=== PATIENT | male | born 1990 | race African-American/Black ===

== ENCOUNTER 2016-09-18 17:58 | Emergency (ER) | payer OTHER ==
[~2016-09-18] VITALS: Ht 167.6 cm; Wt 81.6 kg
[~2016-09-18 17:58] MED LIST: AFRIN30 ML NAS; ALBUTEROL0.09 MG/A1 INH; CLARITIN10 M1 PO; MEDROL DOSEPAK1 PAC PO; MEDROL4 M2 PO; MOTRIN800 MG PO; MULTIVITAMIN1 TAB PO; NASONEX17 GM NASB; PREDNISONE20 M1 PO; PROVENTIL HFA6.7 GM INH; REGLAN10 MG PO; ROBITUSSIN W/CO10 ML PO; TESSALON PERLE100 M1 PO; TESSALON PERLE100 MG PO; TRAMADOL50 MG PO; VENTOLIN HFA18 GM INH; ZOFRAN ODT4 M1 PO; ZOFRAN ODT4 MG PO; ZOFRAN4 M1 SL
[2016-09-18 18:26] LABS: ABSOLUTE BASOPHIL COUNT 0 /CUMM (0.0-0.2); ABSOLUTE EOSINOPHIL COUNT 0.3 /CUMM (0.0-0.7); ABSOLUTE GRANULOCYTE CT 10.4 /CUMM (1.4-6.5); ABSOLUTE LYMPH COUNT 2.4 /CUMM (1.2-3.4); ABSOLUTE MONOCYTE COUNT 0.8 /CUMM (0.10-0.60); BASOPHIL % 0 % (0.0-2.0); EOSINOPHIL % 1.9 % (0-5); HEMATOCRIT 43.4 % (42-52); MEAN CORPUSCULAR HGB 28.8 PG (27.0-31.0); MEAN CORPUSCULAR HGB CONC 33.3 G/DL (33.0-37.0); MEAN CORPUSCULAR VOLUME 86.5 FL (80.0-94.0); MEAN PLATELET VOLUME 7.6 FL (7.4-10.4); PLATELET COUNT 261 /CUMM (130-400); RBC DISTRIBUTION WIDTH 12.8 % (11.5-14.5); RED BLOOD CELL CT 5.02 /CUMM (4.70-6.10); WHITE BLOOD CELL COUNT 13.8 /CUMM (4.8-10.8)
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
[2016-09-18] MEDS ORDERED: ZOFRAN ODT4 M1 SL (20:45)
[2016-09-18] MEDS ORDERED: TESSALON PERLE100 M1 PO (20:45)
[2016-09-18] MEDS ORDERED: NASONEX17 GM NASB (20:45)
[2016-09-18 20:55] VITALS: BP 132/76
== END 2016-09-18 21:14 ==
LOC: ERH 17:58
PROVIDERS: Emergency Medicine
DX: J02.9 Acute pharyngitis, unspecified (principal); B34.9 Viral infection, unspecified
CPT/HCPCS: 87804; 87804-59

== ENCOUNTER 2016-09-30 12:32 | Emergency (ER) | payer OTHER ==
[~2016-09-30] VITALS: Ht 167.6 cm; Wt 83.5 kg
[~2016-09-30 12:32] MED LIST changes: +ZOFRAN ODT4 M1 SL
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
[2016-09-30 13:36] LABS: ABSOLUTE BASOPHIL COUNT 0 /CUMM (0.0-0.2); ABSOLUTE EOSINOPHIL COUNT 0.5 /CUMM (0.0-0.7); ABSOLUTE GRANULOCYTE CT 5.7 /CUMM (1.4-6.5); ABSOLUTE MONOCYTE COUNT 0.7 /CUMM (0.10-0.60); BASOPHIL % 0.2 % (0.0-2.0); EOSINOPHIL % 5.8 % (0-5); GRANULOCYTE % 72.7 % (42.2-75.2); HEMATOCRIT 43.3 % (42-52); MEAN CORPUSCULAR HGB 28.6 PG (27.0-31.0); MEAN CORPUSCULAR HGB CONC 33.1 G/DL (33.0-37.0); MEAN CORPUSCULAR VOLUME 86.4 FL (80.0-94.0); MEAN PLATELET VOLUME 7.6 FL (7.4-10.4); PLATELET COUNT 270 /CUMM (130-400); RBC DISTRIBUTION WIDTH 12.5 % (11.5-14.5); RED BLOOD CELL CT 5.01 /CUMM (4.70-6.10); WHITE BLOOD CELL COUNT 7.8 /CUMM (4.8-10.8)
[2016-09-30 14:04] VITALS: BP 116/58
--- NOTE | 2016-09-30 14:26 | RADIOLOGY REPORT ---
EXAMINATION: XR CHEST CLINICAL INFORMATION: Cough shortness of breath and fever COMPARISON: Chest x-ray from 07/30/2007 TECHNIQUE: Frontal and lateral views of the chest FINDINGS: Heart size is normal. Pulmonary vascularity is normal. There are mildly increased interstitial and peribronchial markings which may be related to bronchitis. There is a small focus of opacity in the left midlung zone and a linear area of atelectasis in the right middle lobe. No dense consolidation is identified. There is no pleural effusion or pneumothorax. There is underpenetration of the thoracic spine in the lateral projection but there is a suggestion of a mild compression deformity in the midthoracic spine at the T8 level. This is not optimally visualized on the views provided. IMPRESSION: Mild interstitial and peribronchial inflammatory change might be related to viral inflammatory process or bronchitis.There is some subsegmental atelectasis in the right middle lobe. A small focus of opacity in the left midlung zone may represent an additional focus of developing atelectasis or infiltrate. No dense consolidation. Possible mid dorsal vertebral body compression deformity, not optimally assessed on the views provided.
[2016-09-30] MEDS ORDERED: MEDROL4 M2 PO (14:39)
[2016-09-30] MEDS ORDERED: ZOFRAN ODT4 M1 SL (14:39)
[2016-09-30] MEDS ORDERED: VIBRAMYCIN100 MG PO (14:39)
[2016-09-30] MEDS ORDERED: IBUPROFEN800 M1 PO (14:39)
[2016-09-30] MEDS ORDERED: CODEINE-GUAIFE120 M1 PO (14:39)
== END 2016-09-30 15:27 ==
LOC: ERH 12:32
PROVIDERS: Physician Assistant
DX: J18.9 Pneumonia, unspecified organism (principal)
CPT/HCPCS: 87040; 87804; 87804-59; 96361; 96374; 96375; J1885; J2405

== ENCOUNTER 2016-10-05 18:16 | Emergency (ER) | payer OTHER ==
[~2016-10-05] VITALS: Ht 167.6 cm; Wt 81.6 kg
[~2016-10-05 18:16] MED LIST changes: +CODEINE-GUAIFE120 M1 PO; +IBUPROFEN800 M1 PO; +VIBRAMYCIN100 MG PO
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
[2016-10-05 19:30] LABS: ABSOLUTE BASOPHIL COUNT 0 /CUMM (0.0-0.2); ABSOLUTE EOSINOPHIL COUNT 0.1 /CUMM (0.0-0.7); ABSOLUTE GRANULOCYTE CT 1.6 /CUMM (1.4-6.5); ABSOLUTE LYMPH COUNT 2.1 /CUMM (1.2-3.4); ABSOLUTE MONOCYTE COUNT 0.4 /CUMM (0.10-0.60); BASOPHIL % 0.5 % (0.0-2.0); EOSINOPHIL % 2.6 % (0-5); GRANULOCYTE % 38.3 % (42.2-75.2); HEMATOCRIT 43.1 % (42-52); MEAN CORPUSCULAR HGB 28.8 PG (27.0-31.0); MEAN CORPUSCULAR HGB CONC 33.2 G/DL (33.0-37.0); MEAN CORPUSCULAR VOLUME 86.7 FL (80.0-94.0); MEAN PLATELET VOLUME 7.8 FL (7.4-10.4); PLATELET COUNT 171 /CUMM (130-400); RBC DISTRIBUTION WIDTH 12.1 % (11.5-14.5); RED BLOOD CELL CT 4.97 /CUMM (4.70-6.10); WHITE BLOOD CELL COUNT 4.2 /CUMM (4.8-10.8)
[2016-10-05] MEDS ORDERED: PRILOSEC OTC20 M1 PO (19:55)
[2016-10-05] MEDS ORDERED: PROMETHAZINE HC25 M3 PO (19:55)
[2016-10-05 20:05] VITALS: BP 123/74
== END 2016-10-05 20:17 ==
LOC: ERH 18:16
PROVIDERS: Pediatrics
DX: R53.81 Other malaise (principal); E86.0 Dehydration; R79.89 Other specified abnormal findings of blood chemistry

== ENCOUNTER 2016-11-13 16:37 | Emergency (ER) | payer OTHER ==
[~2016-11-13] VITALS: Ht 167.6 cm; Wt 77.1 kg
[~2016-11-13 16:37] MED LIST changes: +PRILOSEC OTC20 M1 PO; +PROMETHAZINE HC25 M3 PO
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
[2016-11-13 17:53] LABS: ABSOLUTE BASOPHIL COUNT 0 /CUMM (0.0-0.2); ABSOLUTE EOSINOPHIL COUNT 0.1 /CUMM (0.0-0.7); ABSOLUTE LYMPH COUNT 1.6 /CUMM (1.2-3.4); ABSOLUTE MONOCYTE COUNT 0.8 /CUMM (0.10-0.60); BASOPHIL % 0.3 % (0.0-2.0); EOSINOPHIL % 0.9 % (0-5); HEMATOCRIT 42.7 % (42-52); MEAN CORPUSCULAR HGB 29.4 PG (27.0-31.0); MEAN CORPUSCULAR HGB CONC 33.4 G/DL (33.0-37.0); MEAN CORPUSCULAR VOLUME 88.1 FL (80.0-94.0); MEAN PLATELET VOLUME 7.6 FL (7.4-10.4); PLATELET COUNT 286 /CUMM (130-400); RBC DISTRIBUTION WIDTH 12.3 % (11.5-14.5); RED BLOOD CELL CT 4.85 /CUMM (4.70-6.10); WHITE BLOOD CELL COUNT 12.5 /CUMM (4.8-10.8)
[2016-11-13 17:54] LABS: GRANULOCYTE % 79.5 % (42.2-75.2)
[2016-11-13 18:56] VITALS: BP 125/62
[2016-11-13] MEDS ORDERED: ZOFRAN ODT4 M1 SL (19:19)
[2016-11-13] MEDS ORDERED: BENTYL10 M1 PO (19:19)
== END 2016-11-13 19:28 ==
LOC: ERH 16:37
PROVIDERS: Physician Assistant Medical
DX: K52.9 Noninfective gastroenteritis and colitis, unspecified (principal)
CPT/HCPCS: 81001; 96374; 96375; J1885; J2405

== ENCOUNTER 2016-12-19 20:05 | Emergency (ER) | payer OTHER ==
[~2016-12-19] VITALS: Ht 167.6 cm; Wt 81.6 kg
[~2016-12-19 20:05] MED LIST changes: +BENTYL10 M1 PO
[2016-12-19 20:50] VITALS: BP 133/75
[2016-12-19] MEDS ORDERED: PENICILLIN V P500 M1 PO (20:55)
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
== END 2016-12-19 21:14 ==
LOC: ERH 20:05
DX: J02.0 Streptococcal pharyngitis (principal)
CPT/HCPCS: J1100